=== PATIENT | female | born 1945 | race Asian ===

== ENCOUNTER → 2018-02-07 | Outpatient (CLI) | payer MEDICARE ==
[~2018-02-07] VITALS: Ht 152.4 cm; Wt 49.3 kg
[~2018-02-07] MED LIST: CALCIUM 600/VIT1 CAP PO; CALCIUM PO; CYMBALTA 60MG60 MG PO; FOSAMAX 70MG TA70 MG PO; INDERAL 20MG20 MG PO; LEVOTHYROXIN0.075 MG PO; LIPITOR 10MG10 MG PO; SYNTHROID0.1 MG/TAB PO; TENORMIN 2525 MG/TAB PO; ULTRAM 50MG TAB50 MG PO; VITAMIN D32000 I1 PO
[2018-02-07 08:30] VITALS: BP 156/97; PULSE 71
[2018-02-07 09:25] VITALS: BP 179/99; PULSE 62
[2018-02-07 09:27] VITALS: BP 145/81; PULSE 81
[2018-02-07 09:28] VITALS: BP 150/83; PULSE 81
[2018-02-07 09:29] VITALS: BP 152/82; PULSE 76
[2018-02-07 09:30] VITALS: BP 159/85; PULSE 75
== END ==
LOC: COL.CARD 07:45 → COL.VAS 11:00
DX: Z01.818 Encounter for other preprocedural examination (principal); I25.10 Atherosclerotic heart disease of native coronary artery without angina pectoris
CPT/HCPCS: A9502; J2785

== ENCOUNTER 2018-09-12 09:00 | Outpatient (RCR) | payer OTHER | END 2018-11-24 | disposition home or self-care (01) | LOC: WSPT | DX: S82.51XK Displaced fracture of medial malleolus of right tibia, subsequent encounter for closed fracture with nonunion (principal); M67.01 Short Achilles tendon (acquired), right ankle; G57.81 Other specified mononeuropathies of right lower limb; M21.371 Foot drop, right foot ==

== ENCOUNTER 2019-02-24 08:08 | Outpatient (RCR) | payer OTHER | END 2019-05-25 | LOC: WSPT | DX: S82.51XA Displaced fracture of medial malleolus of right tibia, initial encounter for closed fracture (principal) ==